=== PATIENT | female | born 1995 | race African-American/Black ===

== ENCOUNTER 2023-04-28 08:56 | Emergency (ER) | payer OTHER ==
[2023-04-28 09:04] VITALS: BP 122/75; PULSE 91; RESP 18; TEMP 98; BMI 22.7
== END 2023-04-28 11:07 | disposition home or self-care (01) ==
LOC: JERFT 08:56
DX: R07.9 Chest pain, unspecified (principal); R06.02 Shortness of breath; F41.9 Anxiety disorder, unspecified; R45.7 State of emotional shock and stress, unspecified
CPT/HCPCS: 93005; 93010; 99283-25